=== PATIENT | female | born 1955 | race Caucasian/White ===

== ENCOUNTER 2020-04-06 17:22 | Emergency (ER) | payer MEDICARE, SELFPAY ==
--- NOTE | 2020-04-06 17:36 | ED.SKABFB ---
HPI - Skin/Abscess/Foreign Bdy General Chief complaint: Eye Problems Stated complaint: right eye issues Time Seen by Provider: 04/06/20 17:30 Source: patient and RN notes reviewed Mode of arrival: ambulatory History of Present Illness HPI narrative: Patient fell in her driveway at home around 1630 this afternoon. She was holding something in her right hand when she fell onto her right side. Seems that the shearing force of the fall has caused a laceration to the dorsum of her right second finger. She also has abrasions to her right wrist and right knee. She currently rates her pain 1/10 and reports some tingling to the right second finger. She did clean with soap and water and peroxide prior to arrival. She is not up-to-date on her tetanus vaccine. She takes Xarelto for A. fib. MD complaint: other (Laceration) Related Data Home Medications Medication Instructions Recorded Confirmed aspirin 81 mg tablet,delayed 81 mg PO DAILY 10/23/19 04/06/20 release ferrous sulfate 325 mg (65 mg 325 mg PO DAILY 10/23/19 04/06/20 iron) tablet metoprolol tartrate 50 mg tablet 50 mg PO Q12H 10/23/19 04/06/20 potassium chloride 20 mEq 20 meq PO DAILY 10/23/19 04/06/20 tablet,extended release ergocalciferol (vitamin D2) 1,250 mcg PO WEEKLY 11/29/19 04/06/20 sertraline 50 mg PO BID 11/29/19 04/06/20 warfarin 3 mg PO DAILY 11/29/19 04/06/20 amiodarone 400 mg PO DAILY 04/06/20 04/06/20 insulin glargine [Basaglar KwikPen 8 unit SUBCUT DIRECTED 04/06/20 04/06/20 U-100 Insulin] lisinopril 10 mg PO DAILY 04/06/20 04/06/20 potassium chloride [Klor-Con M20] 20 meq PO DAILY 04/06/20 04/06/20 Allergies Allergy/AdvReac Type Severity Reaction Status Date / Time chlorpheniramine Allergy Unknown psychiatric Verified 12/11/19 14:36 [Scot-Tussin DM] dextromethorphan Allergy Unknown psychiatric Verified 12/11/19 14:36 [Robafen DM Cough-Chest Congest] erythromycin base Allergy Unknown Nausea Verified 12/11/19 14:36 guaifenesin Allergy Unknown psychiatric Verified 12/11/19 14:36 metformin Allergy Unknown Unknown Verified 12/11/19 14:36 Review of Systems Review of Systems: Narrative: CONSTITUTIONAL: Denies body aches, fever, chills, or sweats. EYES: Denies visual changes, redness, or discharge. ENT: Denies rhinorrhea, congestion, sore throat, or otalgia. CARDIOVASCULAR: Denies chest pain, palpitations, or edema. RESPIRATORY: Denies cough or dyspnea. GASTROINTESTINAL: Denies abdominal pain, nausea, vomiting, or diarrhea. GENITOURINARY: Denies dysuria or hematuria. SKIN: Denies rash, itching. + Laceration to right finger and right wrist MUSCULOSKELETAL: Denies back pain, joint pain, or myalgia. NEUROLOGIC: Denies headache, numbness, tingling, or weakness. PSYCH: Denies depression or anxiety. [facility] Past Medical History Medical History (Updated 11/30/19 @ 00:00 by Milagros Datenzin) Encounter for removal of biliary stent Presence of cardiac defibrillator Surgical History Surgical History (Updated 10/23/19 @ 09:28 by Jazzy Moyer, [facility]) History of biliary duct stent placement History of left ventricular assist device (LVAD) Family History Family History (Updated 03/20/18 @ 07:37 by DOCTOR UNKNOWN) Mother Diabetes mellitus, Onset Age: 83 Hypertension, Onset Age: 83 Father Family history of coronary artery disease, Onset Age: 80 Family history of congestive heart failure, Onset Age: 80 Social History Social History Smoking status: Never smoker Alcohol intake: current Comments At time of signature, I have reviewed and agree with nursing past medical, surgical, social and family history unless otherwise noted. Please see nursing chart for further information. There is no relevant family history pertinent to the presenting complaint MDM - Skin/Abscess/Foreign Bdy Differential Diagnosis Differential diagnosis: Likely other (Abrasion, hematoma, contusion, laceration, tend
[2020-04-06 17:37] VITALS: BP 90/60; PULSE 75; RESP 16; TEMP 37.2; O2SAT 97
--- NOTE | 2020-04-06 18:08 | ED.EYEPROB ---
HPI - Eye Problem General Chief complaint: Eye Problems Stated complaint: right eye issues Time Seen by Provider: 04/06/20 17:30 Source: patient and RN notes reviewed Mode of arrival: ambulatory Limitations: no limitations History of Present Illness HPI Narrative: Patient presents today complaining of redness to her right eye that was noted this morning by her children. Denies pain or itching. Denies vision changes or photophobia. Patient takes aspirin and warfarin to thin her blood. She denies any heavy lifting. Denies any constipation. Reports she has sneezed several times in the last couple days. No [id number] interventions prior to arrival. chief complaint: eye redness Related Data Home Medications Medication Instructions Recorded Confirmed aspirin 81 mg tablet,delayed 81 mg PO DAILY 10/23/19 04/06/20 release ferrous sulfate 325 mg (65 mg 325 mg PO DAILY 10/23/19 04/06/20 iron) tablet metoprolol tartrate 50 mg tablet 50 mg PO Q12H 10/23/19 04/06/20 potassium chloride 20 mEq 20 meq PO DAILY 10/23/19 04/06/20 tablet,extended release ergocalciferol (vitamin D2) 1,250 mcg PO WEEKLY 11/29/19 04/06/20 sertraline 50 mg PO BID 11/29/19 04/06/20 warfarin 3 mg PO DAILY 11/29/19 04/06/20 amiodarone 400 mg PO DAILY 04/06/20 04/06/20 insulin glargine [Basaglar KwikPen 8 unit SUBCUT DIRECTED 04/06/20 04/06/20 U-100 Insulin] lisinopril 10 mg PO DAILY 04/06/20 04/06/20 potassium chloride [Klor-Con M20] 20 meq PO DAILY 04/06/20 04/06/20 Allergies Allergy/AdvReac Type Severity Reaction Status Date / Time chlorpheniramine Allergy Unknown psychiatric Verified 12/11/19 14:36 [Scot-Tussin DM] dextromethorphan Allergy Unknown psychiatric Verified 12/11/19 14:36 [Robafen DM Cough-Chest Congest] erythromycin base Allergy Unknown Nausea Verified 12/11/19 14:36 guaifenesin Allergy Unknown psychiatric Verified 12/11/19 14:36 metformin Allergy Unknown Unknown Verified 12/11/19 14:36 Review of Systems Review of Systems: Narrative: CONSTITUTIONAL: Denies body aches, fever, chills, or sweats. EYES: Denies visual changes, or discharge. + Right eye redness ENT: Denies rhinorrhea, congestion, sore throat, or otalgia. CARDIOVASCULAR: Denies chest pain, palpitations, or edema. RESPIRATORY: Denies cough or dyspnea. GASTROINTESTINAL: Denies abdominal pain, nausea, vomiting, or diarrhea. GENITOURINARY: Denies dysuria or hematuria. SKIN: Denies rash, itching, or wounds. MUSCULOSKELETAL: Denies back pain, joint pain, or myalgia. NEUROLOGIC: Denies headache, numbness, tingling, or weakness. PSYCH: Denies depression or anxiety. [facility] Past Medical History Medical History (Updated 04/06/20 @ 18:11 by Shabnam Rosado, [employer], ) Encounter for removal of biliary stent Presence of cardiac defibrillator Surgical History Surgical History (Updated 10/23/19 @ 09:28 by Jazzy Moyer, [facility]) History of biliary duct stent placement History of left ventricular assist device (LVAD) Family History Family History (Updated 03/20/18 @ 07:37 by DOCTOR UNKNOWN) Mother Diabetes mellitus, Onset Age: 83 Hypertension, Onset Age: 83 Father Family history of coronary artery disease, Onset Age: 80 Family history of congestive heart failure, Onset Age: 80 Social History Social History Smoking status: Never smoker Alcohol intake: current Comments At time of signature, I have reviewed and agree with nursing past medical, surgical, social and family history unless otherwise noted. Please see nursing chart for further information. There is no relevant family history pertinent to the presenting complaint Exam Narrative: Exam Narrative: GENERAL: Well-appearing, well-nourished, and in no acute distress. HEAD: Normocephalic, atraumatic. EYES: EOMI. PERRL. Lids and lashes normal. Mild subconjunctival hemorrhage of the right medial eye. Left eye normal ENT: Mucous membranes pink an
== END 2020-04-06 18:14 | disposition home or self-care (01) ==
PROVIDERS: Emergency Provider Nurse Practitioner; PCP Family Medicine
DX: H11.31 Conjunctival hemorrhage, right eye (principal); I50.9 Heart failure, unspecified; I25.10 Atherosclerotic heart disease of native coronary artery without angina pectoris; I11.0 Hypertensive heart disease with heart failure; E11.9 Type 2 diabetes mellitus without complications; I25.2 Old myocardial infarction; Z95.810 Presence of automatic (implantable) cardiac defibrillator; Z79.84 Long term (current) use of oral hypoglycemic drugs
CPT/HCPCS: 99211; G0463

== ENCOUNTER 2022-05-08 10:07 | Emergency (ER) | payer MEDICARE, SELFPAY ==
--- NOTE | 2022-05-08 10:09 | ED.WOUNDLAC ---
HPI - Wound/Laceration General Chief Complaint: Wound/Laceration Stated Complaint: Skin Tear On Arm Time Seen by Provider: 05/08/22 10:21 Source: patient, RN notes reviewed and old records reviewed Mode of arrival: ambulatory Limitations: no limitations History of Present Illness HPI narrative: 66-year-old female presents to the [facility] with left forearm skin tears. Patient states that she tripped and slid down metal bleachers, ripped her skin. Patient currently has an LVAD and is on blood thinners however bleeding is controlled. Unknown last Tdap. Full range of the elbow and wrist, strong frame assembler. Capillary refill under 2 seconds. Unable to palpate a radial pulse due to LVAD. Next to patient that unfortunately x-ray is not available today, offered to send her to another facility for an x-ray, patient declined states that she does not believe any is broken that she is just wanting the skin tears cleaned, updated Tdap and Related Data Home Medications Medication Instructions Recorded Confirmed aspirin 81 mg tablet,delayed 81 mg PO DAILY 10/23/19 05/08/22 release (Adult Low Dose Aspirin) ferrous sulfate 325 mg (65 mg 325 mg PO DAILY 10/23/19 05/08/22 iron) tablet metoprolol tartrate 50 mg tablet 50 mg PO Q12H 10/23/19 05/08/22 potassium chloride 20 mEq 20 meq PO DAILY 10/23/19 05/08/22 tablet,extended release ergocalciferol (vitamin D2) 1,250 1,250 mcg PO WEEKLY 11/29/19 05/08/22 mcg (50,000 unit) capsule warfarin 3 mg tablet 3 mg PO DAILY 11/29/19 05/08/22 insulin glargine 100 unit/mL (3 8 unit subcut DIRECTED 04/06/20 05/08/22 mL) subcutaneous pen (Basaglar KwikPen U-100 Insulin) lisinopril 10 mg tablet 10 mg PO DAILY 04/06/20 05/08/22 amiodarone 400 mg tablet 200 mg PO DAILY 05/29/20 05/08/22 insulin aspart U-100 100 unit/mL 1 ea subcut DAILY 05/08/22 05/08/22 (3 mL) subcutaneous pen (Novolog Flexpen U-100 Insulin aspart) Allergies Allergy/AdvReac Type Severity Reaction Status Date / Time chlorpheniramine Allergy Unknown psychiatric Verified 05/08/22 10:09 [Scot-Tussin DM] dextromethorphan Allergy Unknown psychiatric Verified 05/08/22 10:09 [Robafen DM Cough-Chest Congest] erythromycin base Allergy Unknown Nausea Verified 05/08/22 10:09 guaifenesin Allergy Unknown psychiatric Verified 05/08/22 10:09 metformin Allergy Unknown Unknown Verified 05/08/22 10:09 Review of Systems Review of Systems: All systems reviewed & are unremarkable except as noted in HPI and below Constitutional: Constitutional: Reports no additional constitutional complaints, Denies chills and Denies fever(s) Eyes: Eyes: Reports no additional eye complaints ENT: Reports system reviewed and no additional complaints, except as documented Cardiovascular: Cardiovascular: Reports no additional cardiovascular complaints, Denies chest pain and Denies dyspnea Respiratory: Respiratory: Reports no additional respiratory complaints, Denies cough and Denies dyspnea Gastrointestinal: Gastrointestinal: Reports no additional gastrointestinal complaints, Denies abdominal pain, Denies nausea and Denies vomiting Musculoskeletal: Musculoskeletal: Reports no additional musculoskeletal complaints Integumentary/Breasts: Skin/Breast: Reports as per HPI (Skin [id number]) Neurologic: Reports system reviewed and no additional complaints, except as documented Psychiatric: Psychiatric: Reports no additional psychiatric complaints Allergic/Immunologic: Allergic/Immunologic: Reports no additional allergic/immunologic complaints ON LICENSE OF [facility] Past Medical History Medical History (Updated 05/08/22 @ 11:12 by Mayte Salgado APRN) Encounter for removal of biliary stent Presence of cardiac defibrillator Surgical History Surgical History History of biliary duct stent placement History of left ventricular assist device (LVAD) Family History Family History (Reviewed 05/08/22 @ 19
[2022-05-08 10:15] VITALS: BP 114/77; PULSE 69; RESP 17; TEMP 36.1; O2SAT 99
[2022-05-08] MEDS: TETANUS,DIPHTHERIA,AC PERTUSSIS ADULT (0.5 ML) BOOSTRIX IM (10:28)
== END 2022-05-08 11:13 | disposition home or self-care (01) ==
PROVIDERS: Emergency Provider Nurse Practitioner; PCP Family Medicine
DX: S51.812A Laceration without foreign body of left forearm, initial encounter (principal); W01.0XXA Fall on same level from slipping, tripping and stumbling without subsequent striking against object, initial encounter; Z23 Encounter for immunization; Z95.810 Presence of automatic (implantable) cardiac defibrillator; Z79.82 Long term (current) use of aspirin; Z79.01 Long term (current) use of anticoagulants
CPT/HCPCS: 90471; 90715; 99213; G0463

== ENCOUNTER 2024-05-07 09:00 | Outpatient (CLI) | payer MEDICARE, SELFPAY ==
[2024-05-07 15:00] LABS: Basophils Percent Auto 0.6 % (0.2-1.2); Eosinophils Percent Auto 0.8 % (0-4.4); Hematocrit 35.3 % (37.0-47.0); Hemoglobin 10.8 g/dL (12.0-15.0); Immature Granulocyte Absolute 0.02 K/mm3 (0.00-0.031); Immature Granulocyte Percent A 0.4 % (0-0.5); Lymphocytes Absolute Auto 0.63 K/mm3 (0.9-3.2); Lymphocytes Percent Auto 12.3 % (18.3-44.2); Mean Corpuscular HGB Conc 30.6 g/dl (32-36); Mean Corpuscular Hemoglobin 28.1 pg (26-34); Mean Corpuscular Volume 91.9 fl (80-100); Mean Platelet Volume 10.3 fl (7.4-10.4); Monocytes Absolute Auto 0.4 K/mm3 (0.1-0.6); Neutrophils Percent Auto 78.9 % (45.5-73.1); Platelet Count Result 226 k/mm3 (150-375); Red Blood Count 3.84 M/mm3 (4.2-5.4); Red Cell Distribution Width 22.8 % (11.5-14.5); White Blood Count 5.1 K/mm3 (4.5-10.0)
[2024-05-07 16:01] LABS: Platelet Estimate Adequate (Adequate); Schistocytes None Seen
[2024-05-07 16:02] LABS: Anisocytosis 3+; Hypochromasia 1+
[2024-05-07 16:20] LABS: Alanine Aminotransferase 33 U/L (6-35); Albumin Level 3.9 g/dL (3.5-5.1); Alkaline Phosphatase 117 U/L (38-126); Anion Gap 7 mmol/L (4-12); Aspartate Amino Transferase 77 U/L (14-36); Bilirubin,Total 0.7 mg/dL (0.2-1.3); Blood Urea Nitrogen 43 mg/dL (7-17); Calcium 9.1 mg/dL (8.4-10.2); Carbon Dioxide 26 mmol/L (22-30); Chloride 104 mmol/L (98-107); Cholesterol 190 mg/dL (0-200); Estimated Glomerular Filt Rate 32; Glucose 172 mg/dL (65-110); HDL Direct 62 mg/dL; Potassium 4.2 mmol/L (3.4-5.0); Sodium 137 mmol/L (137-145); Triglycerides 131 mg/dL (<150)
[2024-05-07 16:29] LABS: NT Pro B Type Natriuretic Pept 4420 pg/mL (19.9-100)
[2024-05-07 16:33] LABS: LDL Cholesterol Direct 109 mg/dL
[2024-05-07 16:53] LABS: Creatinine Urine 162.1 mg/dL
[2024-05-07 16:57] LABS: MALB Creatinine Ratio 8.8 mg/g (0-30); Microalbumin Urine Random 14.2 mg/L (0-16.7)
[2024-05-07 20:53] LABS: Hemoglobin A1C 6.8 % (<5.7)
[2024-05-11 14:43] LABS: Apolipoprotein B 88 mg/dL
== END 2024-05-07 09:01 | disposition home or self-care (01) ==
LOC: ANHGOSHLAB 09:02
PROVIDERS: PCP Nurse Practitioner; Visit Provider Internal Medicine
DX: E11.8 Type 2 diabetes mellitus with unspecified complications (principal); I42.0 Dilated cardiomyopathy; D50.9 Iron deficiency anemia, unspecified; E78.2 Mixed hyperlipidemia; Z79.899 Other long term (current) drug therapy; I11.0 Hypertensive heart disease with heart failure; I50.9 Heart failure, unspecified
CPT/HCPCS: 36415; 80053; 80061; 82043; 82172; 83036; 83880; 84443; 85025

== ENCOUNTER 2024-06-08 11:10 | Outpatient (CLI) | payer MEDICARE, SELFPAY ==
[2024-06-08 14:36] LABS: Add Urine Microscopic? YES; Appearance Urine Turbid (Clear); Bacteria Urine Rare /hpf; Bilirubin Urine 1+ (Negative); Blood Urine 2+ (Negative); Color Urine Dark Yellow (Yellow); Glucose Urine UA Trace mg/dL (Negative); Ketones Urine Trace mg/dL (Negative); Leukocyte Esterase Ur 2+ LEU/UL (Negative); Need Manual Microscopic Reviewed; Nitrate Urine Positive (Negative); Protein Urine 2+ mg/dL (Negative); RBC Urine 51-100 /hpf (0-2); Specific Grav Ur 1.032 (1.001-1.035); Squamous Epithelial Cell Urine Moderate /hpf (Few); WBC Urine >100 /hpf (0-3)
== END 2024-06-08 11:11 | disposition home or self-care (01) ==
LOC: ANHGOSHLAB 11:12
PROVIDERS: PCP Nurse Practitioner; Visit Provider Nurse Practitioner
DX: R30.0 Dysuria (principal)
CPT/HCPCS: 81001; 87077; 87086; 87186

== ENCOUNTER 2025-03-25 14:26 | Outpatient (CLI) | payer MEDICARE, SELFPAY ==
--- NOTE | ~2025-03-25 | XR_ITS ---
3 VIEWS LUMBAR SPINE Ordering provider: Heide Pak NP History: . M54.9 - Dorsalgia, unspecified . Comparison: None. FINDINGS: VERTEBRAL BODIES:Loss of height of L5 is noted. Otherwise, No visible fracture or subluxation. Degene rative changes of the spine. DISK SPACES: Narrowing of the disc L2-L3. SOFT TISSUES: Atherosclerotic changes of the aorta. Bilateral sacroiliacs. IMPRESSION: Loss of height of L5 by about 25% which may be acute or chronic. MRI evaluation advised. Degenerative disc disease at the level of L2-L3. Reviewed, dictated and finalized at location A.
== END 2025-03-25 14:27 | disposition home or self-care (01) ==
PROVIDERS: PCP Nurse Practitioner; Visit Provider Nurse Practitioner
DX: M51.369 Other intervertebral disc degeneration, lumbar region without mention of lumbar back pain or lower extremity pain (principal)
CPT/HCPCS: 72100

== ENCOUNTER 2025-03-28 09:02 | Outpatient (CLI) | payer MEDICARE, SELFPAY ==
--- NOTE | ~2025-03-28 | CT_ITS ---
Noncontrast CT scan of the lumbar spine CLINICAL HISTORY: L5 fracture TECHNIQUE: Axial noncontrast imaging of the lumbar spine was performed. Sagittal and coronal reformat manuelito images were constructed. Dose reduction technique was used on this scan by utilizing automated ex posure control and iterative reconstruction technique. The dose-length product (DLP) was 565.80 mGy-c m. FINDINGS: There is mild acute compression fracture involving the suprarenal the region of L5. No othe r fracture evident. There is 6 mm retrolisthesis of L2 over L3. At L1-L2, there is no disc bulge or herniation. No spinal canal stenosis or neural foraminal narrowin g. At L2-L3, there is severe degenerative disc narrowing. There is minimal facet arthropathy. No central canal stenosis. There is mild left neural foraminal narrowing. Right neural foramen preserved. At L3-L4, there is minimal disc bulge and mild facet hypertrophy. No central canal stenosis or neural foraminal narrowing. At L4-L5, there is mild disc bulge and moderate facet hypertrophy. No central canal stenosis or neura l foraminal narrowing. At L5-S1, there is no disc bulge or herniation. There is moderate facet joint degenerative change. No spinal canal stenosis or neural foraminal narrowing. Paravertebral soft tissues are unremarkable. Impression: Acute, mild L5 compression fracture, as detailed above. 6 mm retrolisthesis of L2 over L3. Severe degenerative disc narrowing L2-L3, but minimal degenerative changes otherwise in the lumbar sp ine. Reviewed, dictated and finalized at [facility]. Impression: Acute, mild L5 compression fracture, as detailed above. 6 mm retrolisthesis of L2 over L3. Severe degenerative disc narrowing L2-L3, but minimal degenerative changes othe rwise in the lumbar spine.
== END 2025-03-28 09:03 | disposition home or self-care (01) ==
PROVIDERS: PCP Nurse Practitioner; Visit Provider Nurse Practitioner
DX: S32.050A Wedge compression fracture of fifth lumbar vertebra, initial encounter for closed fracture (principal); X58.XXXA Exposure to other specified factors, initial encounter
CPT/HCPCS: 72131